=== PATIENT | female | born 1960 | race Caucasian/White ===

== ENCOUNTER → 2016-05-15 | Outpatient (CLI) | payer BC ==
[~2016-05-15] MED LIST: ABILIFY2 MG PO; ACIPHEX20 MG PO; BEANO1 TAB PO; BENICAR40 MG PO; CENTRUM SILVER1 CTB PO; CEPHALEXIN500 M1 PO; COREG 25MG25 MG/TAB PO; CYMBALTA 60MG60 MG PO; EFFEXOR XR75 MG/CAP PO; ESTROVEN PO; HCTZ 25MG TAB25 MG PO; KLONOPIN WAFER0.5 MG PO; NORCO 325 MG-51 TAB PO; NORVASC 5MG5 MG/TAB PO; PREMPRO 0.3 MG-1 TAB PO; ULTRAM 50MG TAB50 MG PO; WELLBUTRIN SR150 M1 PO; ZOCOR 40MG40 MG PO; ZOVIRAX400 MG PO
== END ==
LOC: BHSO 08:39
DX: F33.42 Major depressive disorder, recurrent, in full remission (principal)

== ENCOUNTER 2016-07-24 18:23 | Emergency (ER) | payer BC ==
[~2016-07-24] VITALS: Ht 170.2 cm; Wt 72.7 kg
[~2016-07-24 18:23] MED LIST changes: -ACIPHEX20 MG PO; -CYMBALTA 60MG60 MG PO; -NORCO 325 MG-51 TAB PO; -NORVASC 5MG5 MG/TAB PO; -PREMPRO 0.3 MG-1 TAB PO; -ULTRAM 50MG TAB50 MG PO
[2016-07-24 18:25] VITALS: TEMP 98.5
[2016-07-24] MEDS ORDERED: ULTRAM 50MG TAB50 MG PO (18:47)
[2016-07-24] MEDS ORDERED: ACIPHEX20 MG PO (18:48)
[2016-07-24] MEDS ORDERED: PREMPRO 0.3 MG-1 TAB PO (18:48)
[2016-07-24] MEDS ORDERED: CYMBALTA 60MG60 MG PO (18:48)
[2016-07-24 19:02] LABS: BASO # 0.1 (0.0-0.2); BASO % 0.6 % (0.0-2.0); EOS # 0.2 (0.0-0.7); EOS % 2.4 % (0-4.0); GRAN # 6.8 (1.4-6.5); GRAN % 69.4 % (42.2-75.2); HEMATOCRIT 45.2 % (37.0-47.0); HEMOGLOBIN 15.2 g/dl (12.5-16.0); LYMPH # 2.2 (1.2-3.4); LYMPH % 22.5 % (20.0-51.0); MEAN CELL VOLUME 86 fl (80.0-100.0); MEAN CORPUSCULAR HEMOGLOBIN 29 pg (27.0-31.0); MEAN CORPUSCULAR HGB CONC 34 g/dl (33.0-37.0); MEAN PLATELET VOLUME 9.6 fl (7.4-10.4); MONO # 0.5 (0.1-0.6); MONO % 4.8 % (1.7-9.3); PLATELET COUNT 293 K/mm3 (130-400); RED BLOOD COUNT 5.25 M/mm3 (4.10-5.30); REDCELL DISTRIBUTION WIDTH-CV 13.1 % (11.5-14.5); WHITE BLOOD COUNT 9.8 K/mm3 (4.8-10.8)
[2016-07-24 19:23] LABS: ALANINE AMINOTRANSFERASE 25 U/L (9-52); ALBUMIN 4.2 gm/dL (3.5-5.0); ALKALINE PHOSPHATASE 74 U/L (50-136); ANION GAP 12 mmol/L (7-16); BILIRUBIN,TOTAL 0.7 mg/dL (0.0-1.0); BLOOD UREA NITROGEN 15 mg/dL (7-17); CALCIUM 9.2 mg/dL (8.4-10.2); CARBON DIOXIDE 27 mmol/L (22-30); CHLORIDE 98 mmol/L (98-107); CREATININE, serum 0.55 mg/dL (0.52-1.25); GLUCOSE 176 mg/dL (74-106); POTASSIUM 3.4 mmol/L (3.4-5.0); SODIUM 137 mmol/L (137-145)
[2016-07-24 19:46] LABS: TROPONIN-I < 0.012 ng/mL (0.000-0.034)
[2016-07-24 20:07] VITALS: PULSE 78
[2016-07-24 20:45] VITALS: BP 138/85
[2016-07-24] MEDS ORDERED: NORCO 325 MG-51 TAB PO (20:55)
[2016-07-24] MEDS ORDERED: NORVASC 5MG5 MG/TAB PO (20:55)
== END 2016-07-24 21:10 | disposition home or self-care (01) ==
LOC: COL.ER 18:23
PROVIDERS: Emergency Medicine
DX: M51.16 Intervertebral disc disorders with radiculopathy, lumbar region (principal); I10 Essential (primary) hypertension; G89.29 Other chronic pain
CPT/HCPCS: J1170; J2405

== ENCOUNTER → 2016-10-23 | Outpatient (CLI) | payer BC ==
[~2016-10-23] MED LIST changes: +ACIPHEX20 MG PO; +CYMBALTA 60MG60 MG PO; +NORCO 325 MG-51 TAB PO; +NORVASC 5MG5 MG/TAB PO; +PREMPRO 0.3 MG-1 TAB PO; +ULTRAM 50MG TAB50 MG PO
== END ==
LOC: COL.VAS 07:37
DX: I10 Essential (primary) hypertension (principal)

== ENCOUNTER → 2016-11-13 | Outpatient (CLI) | payer BC | LOC: BHSO 08:37 | DX: F33.1 Major depressive disorder, recurrent, moderate (principal) ==

== ENCOUNTER → 2017-07-22 | Outpatient (CLI) | payer BC | LOC: BHSO 09:30 | DX: F41.1 Generalized anxiety disorder (principal) | CPT/HCPCS: G0463 ==

== ENCOUNTER → 2017-09-08 | Outpatient (CLI) | payer BC | LOC: BHSO 10:19 | DX: F41.1 Generalized anxiety disorder (principal) | CPT/HCPCS: G0463 ==

== ENCOUNTER → 2017-11-09 | Outpatient (CLI) | payer BC | LOC: BHSO 10:36 | DX: F33.42 Major depressive disorder, recurrent, in full remission (principal) | CPT/HCPCS: G0463 ==

== ENCOUNTER → 2018-05-13 | Outpatient (CLI) | payer BC | LOC: BHSO 09:57 | DX: F41.1 Generalized anxiety disorder (principal) | CPT/HCPCS: G0463 ==

== ENCOUNTER → 2018-07-22 | Outpatient (CLI) | payer BC | LOC: BHSO 09:56 | DX: F41.1 Generalized anxiety disorder (principal) | CPT/HCPCS: G0463 ==

== ENCOUNTER → 2018-10-21 | Outpatient (CLI) | payer BC | LOC: BHSO 09:42 | DX: F41.1 Generalized anxiety disorder (principal) ==

== ENCOUNTER → 2019-04-12 | Outpatient (CLI) | payer BC | LOC: BHSO 09:17 | DX: F41.1 Generalized anxiety disorder (principal) | CPT/HCPCS: G0463 ==